=== PATIENT | male | born 1940 | race Caucasian/White ===

== ENCOUNTER 2019-02-23 16:54 | Inpatient (IN) | payer MEDICARE ==
[~2019-02-23] VITALS: Ht 177.8 cm; Wt 100.0 kg
[~2019-02-23 16:54] MED LIST: AMLO2.5T2 PO; LISI-232 PO; LISI-600 PO; METF500T7 PO; SIMV20TA5 PO
--- NOTE | 2019-02-23 17:07 | NUR ---
GABY BECKER, SISTER [phone] LOCATED IN [place], [place] SAMMI BLANCA, GRANDDAUGHTER [phone] LOCATED IN [place]
[2019-02-23] MEDS ORDERED: OMEP-50 PO (17:29)
[2019-02-23] MEDS ORDERED: PIOG45TA65 PO (17:29)
[2019-02-23] MEDS ORDERED: METO50TA17 PO (17:29)
[2019-02-23] MEDS ORDERED: ROSU40TA22 PO (17:29)
[2019-02-23] MEDS ORDERED: FLO0.4C PO (17:29)
--- NOTE | 2019-02-23 17:36 | NUR ---
patient stated that his family was concerned about his slurred speech this am, which he does not normally have. I did a complete neuro assessment on him and found him to have some ataxia, some left sided hemianopia as well as some confusion. Also some difficulty performing the heel to mitchell test on the left side. I spoke with Dr Barone about these assessment finding and he ordered a CT of his head to be done stat.
[2019-02-23 17:47] LABS: BASOPHILS # (AUTO) 0.1 X10'3 (0-0.2); BASOPHILS % (AUTO) 0.4 % (0-1); EOSINOPHILS % (AUTO) 0.4 % (0-6); HEMATOCRIT 43.7 % (42.0-52.0); LYMPHOCYTES # (AUTO) 1.6 X10'3 (1.1-4.8); MEAN CORPUSCULAR HEMOGLOBIN 30.6 PG (27.0-31.0); MEAN CORPUSCULAR HGB CONC 34.2 g/dL (33.0-36.5); MEAN CORPUSCULAR VOLUME 89.6 FL (78-98); MEAN PLATELET VOLUME 8.6 FL (7.4-10.4); MONOCYTES # (AUTO) 0.9 X10'3 (0-0.9); MONOCYTES % (AUTO) 7.9 % (2-12); NEUTROPHILS % (AUTO) 77.3 % (42-75); PLATELET COUNT 152 X10'3 (140-440); RED BLOOD COUNT 4.88 X10'6 (4.70-6.10); RED CELL DISTRIBUTION WIDTH 13.6 % (11.5-14.5); WHITE BLOOD COUNT 11.7 X10'3 (4.5-11.0)
[2019-02-23 17:53] LABS: ALANINE AMINOTRANSFERASE 22 U/L (12-78); ALBUMIN 3.6 G/DL (3.4-5.0); ALBUMIN/GLOBULIN RATIO 1.3 (1.1-1.5); ALKALINE PHOSPHATASE 72 IU/L (46-116); ANION GAP 7 (8-16); ASPARTATE AMINO TRANSFERASE 15 U/L (10-37); BILIRUBIN,TOTAL 0.6 MG/DL (0.1-1.0); BLOOD UREA NITROGEN 32 MG/DL (7-18); BUN/CREATININE RATIO 21.8 (5.4-32.0); CALCIUM 8.6 MG/DL (8.5-10.1); CHLORIDE 106 MMOL/L (99-107); CREATININE 1.47 MG/DL (0.60-1.10); GLUCOSE 138 MG/DL (70-104); POTASSIUM 3.4 MMOL/L (3.5-5.1); SODIUM 139 MMOL/L (135-145); TOTAL CARBON DIOXIDE 26.1 MMOL/L (24-32); TOTAL PROTEIN 6.3 G/DL (6.4-8.2); eGFR 46 ML/MIN
[2019-02-23 17:54] LABS: PARTIAL THROMBOPLASTIN TIME 30 SECONDS (22-32)
[2019-02-23 18:00] LABS: CLARITY,URINE CLEAR (Clear); COLOR,URINE YELLOW (Yellow); GLUCOSE, URINE NEGATIVE (Neg); KETONES,URINE TRACE mg/dl (Neg); LEUKOCYTE ESTERASE ,URINE NEGATIVE (Neg); NITRITES, URINE NEGATIVE (Neg); OCCULT BLOOD,URINE NEGATIVE (Neg); PH,URINE 5.5 (4.8-8.0); PROTEIN,URINE TRACE mg/dl (Neg); UROBILINOGEN,URINE 0.2 E.U/dL (0.2-1.0)
[2019-02-23 18:11] LABS: UA COLLECTION TYPE VOIDED
[2019-02-23 18:14] LABS: BACTERIA,URINE NONE SEEN /HPF (Neg); HYALINE CASTS 0-3 /LPF (NEGATIVE); MUCUS STRANDS FEW /LPF (Neg); RBC,URINE NONE SEEN /HPF (0-2); SQUAMOUS EPITHELIAL CELL,UR FEW /LPF (FEW); WBC,URINE 0-4 /HPF (0-4)
[2019-02-23] MEDS ORDERED: normal saline 1000ml 1,000 ML IV ONE ×2 (18:50)
[2019-02-23] MEDS ORDERED: heparin 25,000 UNIT/250ml bag 250 ML IV SCH (18:59)
[2019-02-23] MEDS ORDERED: heparin 10,000 units/1 ML INJ IV PRN (19:00)
[2019-02-23] MEDS ORDERED: heparin 10,000 units/1 ML INJ IV ONE ×2 (19:00→19:10)
[2019-02-23] MEDS ORDERED: nitroGLYCERIN 1gm ointment UD TP ONE (19:00)
--- NOTE | 2019-02-23 19:23 | NUR ---
Pt gave verbal ok to update sister Cecy ([phone]) with status. Sister reports pt is sole CG for with severe dementia. Sister is working to have placed in facility which is creating significant stress for pt. [place] without any family in [place]. Currently no means of transporation home. Sister may be able to party supply specialist tomorrow[facility] for [facility] stay @ [facility] with GILSON Alexander.
[2019-02-23] MEDS ORDERED: mag hydrox/Alum hydrox/simeth 30ml oral suspension PO PRN (22:50)
[2019-02-23] MEDS ORDERED: magnesium hydroxide 30ml (MOM) UD suspension PO PRN (22:50)
[2019-02-23] MEDS ORDERED: ondansetron/PF 4mg/2ml inj IV PRN (22:50)
[2019-02-23] MEDS ORDERED: acetaminophen 325mg tablet PO PRN (22:50)
--- NOTE | 2019-02-23 22:55 | NUR ---
Pt talking with jessica now. Dr. Cerda calling RN to find out what does of coumadin Pt takes. pt reports coumadin just adjusted a few days ago to 1.5 mg nightly. last taken on february 22
[2019-02-23] MEDS ORDERED: WARF1TAB PO (23:04)
[2019-02-23] MEDS ORDERED: insulin Lispro (HumaLOG) vial - multi-dose SQ SCH (23:05)
[2019-02-23] MEDS ORDERED: dextrose ORAL solution 15 GM/59 ML bottle PO PRN ×2 (23:05)
[2019-02-23] MEDS ORDERED: glucagon, human recombinant 1mg kit SUBCUT PRN (23:05)
[2019-02-23] MEDS ORDERED: MESSAGE TO PHARMACY PO ONE (23:05)
[2019-02-23] MEDS ORDERED: dextrose 50%-water 50ml dispensing syringe IV PRN ×2 (23:05)
[2019-02-23] MEDS ORDERED: warfarin 3mg tablet PO ONE (23:10)
--- NOTE | 2019-02-23 23:38 | NUR ---
Dr. Cerda wants the patient to continue his home dose of Actos because it benefits people with strokes and people having symptoms of stroke per research at stroke [facility]. So keep him on the hyperglycemic protocol.
[2019-02-23 23:50] LABS: HEMOGLOBIN A1C 6.9 % (4.5-6.2)
[2019-02-24] VITALS (9 sets, daily range): BP systolic 129–170; BP diastolic 67–83
--- NOTE | 2019-02-24 | NUR ---
Patient in room ORTHO 4020. I have received report from DARLING Schuster and had the opportunity to ask questions and assume patient care.
[2019-02-24] MEDS ORDERED: potassium CL 10mEq/100ml bag 100 ML IV PRN (00:20)
[2019-02-24] MEDS ORDERED: potassium Cl 20 mEq SR tablet PO PRN (00:20)
--- NOTE | 2019-02-24 00:28 | NUR ---
Sarah Mccallum RN called for clarification r/t Heparin order. Explained med had been ordered by [facility] on wrong pt which was identified when reason for med was sought.
--- NOTE | 2019-02-24 00:30 | NUR ---
I called Dr. Cerda regarding the heparin order because he had been up to the floor earlier and told me that he wanted the patient on heparin drip continued since his INR was subtherapeutic. I noticed that the medicine was dc'd on the emar and it looked like it had never been administered in the ER. I called the ER and they said it never was administered because it was ordered on wrong patient and they gave this patient Coumadin and he didn't need it. Dr. Cerda was called and he wants patient on heparin drip without the loading heparin bolus since his diagnosis is possible stroke.
[2019-02-24] MEDS: potassium Cl 20 mEq SR tablet PO PRN ×2 (00:32→05:15)
[2019-02-24] MEDS ORDERED: heparin 10,000 units/1 ML INJ IV PRN (00:35)
[2019-02-24] MEDS ORDERED: heparin 10,000 units/1 ML INJ IV ONE (00:35)
[2019-02-24] MEDS: heparin 25,000 UNIT/250ml bag 250 ML IV SCH ×4 (01:04→20:50)
--- NOTE | 2019-02-24 06:20 | NUR ---
Problems reprioritized. Patient report given, questions answered & plan of care reviewed with DARLING Talbert.
[2019-02-24 07:34] LABS: ALANINE AMINOTRANSFERASE 21 U/L (12-78); ALBUMIN 3.1 G/DL (3.4-5.0); ALBUMIN/GLOBULIN RATIO 1.3 (1.1-1.5); ALKALINE PHOSPHATASE 56 IU/L (46-116); ANION GAP 4 (8-16); ASPARTATE AMINO TRANSFERASE 18 U/L (10-37); BILIRUBIN,TOTAL 0.8 MG/DL (0.1-1.0); BLOOD UREA NITROGEN 17 MG/DL (7-18); BUN/CREATININE RATIO 18.9 (5.4-32.0); CHLORIDE 110 MMOL/L (99-107); CHOL/HDL RATIO 3.1 (0.00-4.99); CHOLESTEROL 120 MG/DL (0-200); GLUCOSE 112 MG/DL (70-104); HDL CHOLESTEROL 39 MG/DL (35-60); LDL CHOLESTEROL 69 MG/DL (50-100); POTASSIUM 3.6 MMOL/L (3.5-5.1); SODIUM 141 MMOL/L (135-145); TOTAL CARBON DIOXIDE 26.7 MMOL/L (24-32); TOTAL PROTEIN 5.5 G/DL (6.4-8.2); eGFR 82 ML/MIN
[2019-02-24] MEDS ORDERED: atorvastatin 10mg tablet PO SCH (08:00)
[2019-02-24] MEDS ORDERED: lisinopril 20mg tablet PO SCH (08:00)
[2019-02-24 08:07] LABS: BASOPHILS % (AUTO) 0.3 % (0-1); EOSINOPHILS # (AUTO) 0.2 X10'3 (0-0.9); EOSINOPHILS % (AUTO) 2.6 % (0-6); HEMATOCRIT 42.8 % (42.0-52.0); HEMOGLOBIN 14.5 g/dl (14.0-17.9); LYMPHOCYTES # (AUTO) 1.3 X10'3 (1.1-4.8); LYMPHOCYTES % (AUTO) 18.8 % (21-51); MEAN CORPUSCULAR HEMOGLOBIN 30.6 PG (27.0-31.0); MEAN PLATELET VOLUME 8.7 FL (7.4-10.4); MONOCYTES # (AUTO) 0.5 X10'3 (0-0.9); MONOCYTES % (AUTO) 7.6 % (2-12); NEUTROPHILS # (AUTO) 4.8 X10'3 (1.8-7.7); NEUTROPHILS % (AUTO) 70.7 % (42-75); PLATELET COUNT 120 X10'3 (140-440); RED BLOOD COUNT 4.76 X10'6 (4.70-6.10); RED CELL DISTRIBUTION WIDTH 13.7 % (11.5-14.5); WHITE BLOOD COUNT 6.7 X10'3 (4.5-11.0)
[2019-02-24] MEDS: pantoprazole 40mg Tablet.DR PO SCH (08:21)
[2019-02-24] MEDS: pioglitazone 45mg tablet PO SCH (08:21)
[2019-02-24] MEDS: metoprolol tartrate 50mg tablet PO SCH ×2 (08:22→19:33)
[2019-02-24 08:44] LABS: TRIGLYCERIDES 93 MG/DL (20-135)
--- NOTE | 2019-02-24 08:48 | NUR ---
DM consult: Pt with A1c 6.9; DM ed not warranted at this time. Will continue to follow. Addendum: 02/24/19 at [address] Amended: Links added.
[2019-02-24] MEDS ORDERED: iohexol 350MG/ML 100ml bottle IV ONE (10:46)
[2019-02-24 14:43] LABS: PARTIAL THROMBOPLASTIN TIME 52 SECONDS (22-32)
--- NOTE | 2019-02-24 18:07 | NUR ---
Problems reprioritized. Patient report given, questions answered & plan of care reviewed with [place] [facility].
--- NOTE | 2019-02-24 18:20 | NUR ---
Patient in room ORTHO 4020. I have received report from DARLING Talbert and had the opportunity to ask questions and assume patient care.
[2019-02-24] MEDS: atorvastatin 20mg tablet PO SCH (19:31)
[2019-02-24] MEDS: aspirin 81mg tablet.DR PO SCH (19:31)
[2019-02-24 20:12] LABS: PARTIAL THROMBOPLASTIN TIME 64 SECONDS (22-32)
[2019-02-24] MEDS ORDERED: tamsulosin 0.4mg capsule PO SCH (21:00)
[2019-02-24] MEDS ORDERED: insulin glargine (Lantus) pen - multi-dose SQ SCH (21:00)
[2019-02-24] MEDS ORDERED: warfarin 3mg tablet PO ONE (21:00)
[2019-02-25] VITALS (8 sets, daily range): BP systolic 114–156; BP diastolic 72–78
[2019-02-25 03:26] LABS: PARTIAL THROMBOPLASTIN TIME 70 SECONDS (22-32)
[2019-02-25] MEDS: heparin 25,000 UNIT/250ml bag 250 ML IV SCH ×2 (03:30→04:52)
[2019-02-25 03:32] LABS: ALBUMIN 3.2 G/DL (3.4-5.0); ALBUMIN/GLOBULIN RATIO 1.2 (1.1-1.5); ANION GAP 6 (8-16); BILIRUBIN,TOTAL 0.7 MG/DL (0.1-1.0); BLOOD UREA NITROGEN 15 MG/DL (7-18); BUN/CREATININE RATIO 17.2 (5.4-32.0); CHLORIDE 108 MMOL/L (99-107); CREATININE 0.87 MG/DL (0.60-1.10); GLUCOSE 117 MG/DL (70-104); MAGNESIUM 1.9 MG/DL (1.5-2.4); POTASSIUM 3.5 MMOL/L (3.5-5.1); SODIUM 141 MMOL/L (135-145); TOTAL CARBON DIOXIDE 26.6 MMOL/L (24-32); TOTAL PROTEIN 5.8 G/DL (6.4-8.2); eGFR 85 ML/MIN
[2019-02-25 03:33] LABS: ALANINE AMINOTRANSFERASE 34 U/L (12-78); ALKALINE PHOSPHATASE 57 IU/L (46-116); ASPARTATE AMINO TRANSFERASE 17 U/L (10-37)
[2019-02-25 05:00] LABS: BASOPHILS % (AUTO) 0.2 % (0-1); EOSINOPHILS # (AUTO) 0.2 X10'3 (0-0.9); EOSINOPHILS % (AUTO) 3.3 % (0-6); LYMPHOCYTES # (AUTO) 1.5 X10'3 (1.1-4.8); LYMPHOCYTES % (AUTO) 24.8 % (21-51); MEAN CORPUSCULAR HEMOGLOBIN 31.1 PG (27.0-31.0); MEAN CORPUSCULAR HGB CONC 34.8 g/dL (33.0-36.5); MEAN CORPUSCULAR VOLUME 89.2 FL (78-98); MEAN PLATELET VOLUME 8.6 FL (7.4-10.4); MONOCYTES # (AUTO) 0.5 X10'3 (0-0.9); MONOCYTES % (AUTO) 7.7 % (2-12); NEUTROPHILS # (AUTO) 3.9 X10'3 (1.8-7.7); PLATELET COUNT 118 X10'3 (140-440); RED BLOOD COUNT 4.82 X10'6 (4.70-6.10); RED CELL DISTRIBUTION WIDTH 13.6 % (11.5-14.5); WHITE BLOOD COUNT 6.1 X10'3 (4.5-11.0)
--- NOTE | 2019-02-25 06:41 | NUR ---
Problems reprioritized. Patient report given, questions answered & plan of care reviewed with DARLING Schaffer.
[2019-02-25] MEDS: aspirin 81mg tablet.DR PO SCH (07:50)
[2019-02-25] MEDS: pantoprazole 40mg Tablet.DR PO SCH (07:51)
[2019-02-25] MEDS: metoprolol tartrate 50mg tablet PO SCH (07:51)
[2019-02-25] MEDS: atorvastatin 20mg tablet PO SCH (07:51)
[2019-02-25] MEDS: pioglitazone 45mg tablet PO SCH (07:51)
[2019-02-25 09:21] LABS: PARTIAL THROMBOPLASTIN TIME 59 SECONDS (22-32)
[2019-02-25] MEDS ORDERED: ASPI-1071 PO (14:50)
[2019-02-25] MEDS ORDERED: warfarin 1mg tablet PO ONE (21:00)
== END 2019-02-25 15:55 | disposition home or self-care (01) | DRG 66 ==
LOC: ER 16:57 → ORTHO 4S 23:59
PROVIDERS: ADMIT Internal Medicine; ATTEND Internal Medicine
PROC: B3251ZZ Computerized Tomography (CT Scan) of Bilateral Common Carotid Arteries using Low Osmolar Contrast (ICD-10-PCS; principal; 2019-02-24)
PROC: B3281ZZ Computerized Tomography (CT Scan) of Bilateral Internal Carotid Arteries using Low Osmolar Contrast (ICD-10-PCS; 2019-02-24)
DX: I63.9 Cerebral infarction, unspecified (principal); E11.9 Type 2 diabetes mellitus without complications; E78.00 Pure hypercholesterolemia, unspecified; E78.5 Hyperlipidemia, unspecified; E86.0 Dehydration; I10 Essential (primary) hypertension; I25.10 Atherosclerotic heart disease of native coronary artery without angina pectoris; I48.0 Paroxysmal atrial fibrillation; R79.1 Abnormal coagulation profile; Z79.01 Long term (current) use of anticoagulants; Z87.891 Personal history of nicotine dependence; Z95.1 Presence of aortocoronary bypass graft; Z95.3 Presence of xenogenic heart valve; Z88.8 Allergy status to other drugs, medicaments and biological substances; Z79.899 Other long term (current) drug therapy
CPT/HCPCS: 36415; 70450; 70496; 70498; 70544; 70551; 71045; 71250; 80053; 80061; 81001; 82948; 83036; 83735; 84484; 85025; 85610; 85730; 87070; 93005; 96360; 97110; 97116; 97161; 99285; G0378; J1644; J1815; Q9967